=== PATIENT | female | born 2000 | race Caucasian/White ===

== ENCOUNTER 2019-05-13 08:34 | Outpatient (CLI) | payer OTHER ==
[~2019-05-13 08:34] MED LIST: EPINEPHrine 1 MG/ML AMP ONE; Gadobenate Dimeglumine 529 MG/1 ML (20ML VIAL) ONE; Iopamidol 300 61% 100 ML VIAL FS ONE; Lidocaine 1% PF 10 ML AMP ONE
--- NOTE | 2019-05-13 11:27 | MRI ---
EXAM: Right shoulder MRI with post arthrogram contrast: HISTORY: Right shoulder pain COMPARISON: None FINDINGS: Multiplanar, multisequence MRI examination of the shoulder is performed. A C joint:No significant abnormality. Supraspinatus tendon: Intact. Infraspinatus tendon: Intact. Biceps tendon: Intact. Subscapularis tendon: Intact. Rotator cuff muscles: Within normal limits of signal and volume. Glenoid labrum: Irregularity of the posterior superior labrum evidence for labral tear No evidence for acute osteochondral defect or significant abnormal marrow signal. IMPRESSION: Irregular tear involving the posterior superior labrum.
--- NOTE | 2019-05-13 14:36 | RAD ---
XR Shoulder Rt Arthrogram Right shoulder arthrogram, under fluoroscopic guidance CLINICAL HISTORY: Posttraumatic right shoulder pain. PROCEDURE: Informed consent was obtained from the patient. [employer] imaging was performed. The patient's right shoulder was prepped and draped in a standard sterile fashion. Using fluoroscopic guidance, the right shoulder was localized. Topical anesthesia with buffered 1% lidocaine was performed. Subseq uently, uneventful access into theright shoulder was performed with a 22-gauge needle, which was confirmed with a small volume of radiopaque contrast. An 9 cc contrast cocktail containing gadolinium , radiopaque contrast, saline, lidocaine and epinephrine was instilled into the left hip joint. Fluoroscopic imaging was acquired and was stored for documentation. The needle was removed. There wer e no procedural complications. Patient tolerated the procedure well. Patient was transferred to MRI Department to undergo MRI arthrogram. Reference separate report for fu rther details. IMPRESSION: Technically successful right shoulder arthrogram, under fluoroscopic guidance.
== END 2019-05-13 08:35 | disposition home or self-care (01) ==
LOC: RAD 08:34
PROVIDERS: ATTEND Orthopaedic Surgery
DX: M25.511 Pain in right shoulder (principal); S43.401A Unspecified sprain of right shoulder joint, initial encounter
CPT/HCPCS: 23350; A9577; J0171; J2001; Q9967